=== PATIENT | female | born 1985 | race Caucasian/White ===

== ENCOUNTER 2020-07-04 05:09 | Emergency (ER) | payer MEDICARE, OTHER ==
[~2020-07-04] VITALS: Ht 170.2 cm; Wt 54.4 kg
--- NOTE | 2020-07-04 05:19 | NUR ---
PT STANFORD FROM HOME C/O BIZARE BEHAVIOR. POSSIBLE FENTANYL USE PER PT'S SISTER/ I SPOKE TO THE PT'S SISTER WHICH STATED PT LEFT THE HOUSE AND CAME BACK ACTING "WEIRD" ALSO STATED SHE STATES SHE "FEELS WORMS COMING OUT OF HER" NO WORMS NOTED UPON ASSESSMENT.
--- NOTE | 2020-07-04 06:30 | NUR ---
URINE COLLECTED, SENT.
--- NOTE | 2020-07-04 06:35 | NUR ---
Mellisa duncan in [facility] - 07/04/20 at 0652 by AZUL URINE COLLECTED, SENT.
--- NOTE | 2020-07-04 06:39 | NUR ---
HENRIID SWABBED, SENT TO LAB.
--- NOTE | 2020-07-04 06:39 | NUR ---
Mellisa duncan in [facility] - 07/04/20 at 0653 by AZUL COVID SWABBED, SENT TO LAB.
--- NOTE | 2020-07-04 06:39 | NUR ---
Mellisa duncan in [facility] - 07/04/20 at 0653 by AZUL COVID SWABBED, SENT TO LAB.
[2020-07-04 06:44] LABS: BASOPHILS # (AUTO) 0.1 /CMM (0.0-0.2); BASOPHILS % (AUTO) 0.9 % (0.0-2.0); EOSINOPHILS % (AUTO) 0.3 % (0.0-6.0); HEMATOCRIT 35 % (33-45); HEMOGLOBIN 11.5 g/dL (11.5-14.8); LYMPHOCYTES # (AUTO) 0.8 /CMM (0.8-4.8); LYMPHOCYTES % (AUTO) 5.8 % (20.0-44.0); MEAN CORPUSCULAR HGB CONC 33 g/dl (31.0-36.0); MEAN CORPUSCULAR VOLUME 90 fL (82-100); MONOCYTES % (AUTO) 7.4 % (2.0-12.0); NEUTROPHILS % (AUTO) 85.6 % (43.0-81.0); PLATELET COUNT (AUTO) 248 /CMM (150-450)
--- NOTE | 2020-07-04 06:53 | NUR ---
HENRIID SWABBED, SENT TO LAB.
[2020-07-04 07:20] LABS: ALANINE AMINOTRANSFERASE 24 U/L (12-78); ALBUMIN 3.4 g/dL (3.4-5.0); ALCOHOL, BLOOD < 3 mg/dL (0-0); ALKALINE PHOSPHATASE 59 U/L (46-116); ASPARTATE AMINOTRANSFERASE 25 U/L (15-37); BILIRUBIN,DIRECT 0.2 mg/dL (0.0-0.2); BILIRUBIN,TOTAL 0.6 mg/dL (0.2-1.0); CALCIUM, SERUM 8.6 mg/dL (8.5-10.1); CARBON DIOXIDE 25 mmol/L (21-32); CHLORIDE 102 mmol/L (98-107); CREATININE 0.5 mg/dL (0.6-1.3); GLUCOSE 99 mg/dL (74-106); POTASSIUM 3.6 mmol/L (3.5-5.1); SODIUM SERUM 139 mmol/L (136-145); TOTAL PROTEIN, SERUM 7.2 g/dL (6.4-8.2); UREA NITROGEN, BLOOD 9 mg/dL (7-18)
[2020-07-04 07:33] LABS: ACETAMINOPHEN < 10 ug/ml (10-30)
--- NOTE | 2020-07-04 07:38 | NUR ---
REPORT GIVEN TO TOMASZ MILLER FOR SUNSHINE
[2020-07-04 07:50] LABS: BILIRUBIN,URINE NEGATIVE (NEGATIVE); COLOR,URINE YELLOW (YELLOW); LEUKOCYTE ESTERASE ,URINE NEGATIVE (NEGATIVE); NITRITE, URINE NEGATIVE (NEGATIVE); PH,URINE 7.5 (5.0-8.0); PROTEIN,URINE 30 mg/dl (NEGATIVE); UGLUCOSE NEGATIVE (NEGATIVE)
[2020-07-04 08:59] LABS: BACTERIA,URINE Rare /HPF (None Seen); RBC,URINE 0-2 /HPF (0-2); SQUAMOUS EPITHELIAL CELL,UR Few /HPF (None Seen); WBC,URINE 0-2 /HPF (0-3)
[2020-07-04 09:00] LABS: URINE AMORPHOUS PHOSPHATES Moderate /HPF (None Seen)
--- NOTE | 2020-07-04 09:05 | NUR ---
Patient discharged to home in stable condition. Written and verbal after care instructions given. Patient verbalizes understanding of instruction.
[2020-07-04 09:09] VITALS: BP 124/65
== END 2020-07-04 09:09 | disposition home or self-care (01) ==
LOC: ER 05:16
DX: F11.10 Opioid abuse, uncomplicated (principal); F95.2 Tourette's disorder; F84.0 Autistic disorder; F19.10 Other psychoactive substance abuse, uncomplicated; R46.2 Strange and inexplicable behavior; D72.829 Elevated white blood cell count, unspecified; Z20.828 Contact with and (suspected) exposure to other viral communicable diseases
CPT/HCPCS: 36415; 80048; 80076; 80299; 80307; 80320; 81001; 85025; 87426; 99283; C1751; C9803; G0480

== ENCOUNTER 2020-10-03 21:26 | Emergency (ER) | payer MEDICARE, OTHER ==
[~2020-10-03] VITALS: Ht 170.2 cm; Wt 54.4 kg
[2020-10-03] MEDS ORDERED: diphenhydrAMINE HCL 50 MG/ML VIAL ONE (21:40)
[2020-10-03] MEDS ORDERED: diphenhydrAMINE HCL ELIX 25 MG/10 ML UDC ONE (21:55)
[2020-10-03] MEDS ORDERED: OLANZAPINE 10 MG VIAL IM ONE ×2 (21:56→22:00)
[2020-10-03] MEDS ORDERED: IV NS 0.9% 1,000 ML BAG IV ONE (22:00)
[2020-10-03] MEDS ORDERED: DIPHENHYDRAMINE HCL 12.5 MG/5 ML UDC PO ONE (22:00)
--- NOTE | 2020-10-03 22:05 | NUR ---
STANFORD FROM HOME TO ER BED 13. AAOX4. 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 NOT IN RESP DISTRESS. BROUGHT IN FOR A LEFT LOWER LEG SWELLING AND BILAT ARM REDNESS AND ITCHING. PER PT, THEY HAVE MOLDS IN THE HOUSE THAT IS CAUSING THE REDNESS. PT STHINKS THAT IT IS INFECTED. PROVIDER WAS AT THE BEDSIDE FOR EVAL. ORDERS RECEIVED, NOTED AND MARINA OUT. IV LINE ESTABLISHED ON L AC 20G, BLOOD DRAWN AND SENT TO LAB.
[2020-10-03 22:07] LABS: BASOPHILS % (AUTO) 0.7 % (0.0-2.0); EOSINOPHILS % (AUTO) 2.6 % (0.0-6.0); HEMATOCRIT 41 % (33-45); HEMOGLOBIN 13.6 g/dL (11.5-14.8); LYMPHOCYTES # (AUTO) 2.4 /CMM (0.8-4.8); LYMPHOCYTES % (AUTO) 36.3 % (20.0-44.0); MEAN CORPUSCULAR HGB CONC 33 g/dl (31.0-36.0); MEAN CORPUSCULAR VOLUME 93 fL (82-100); MONOCYTES # (AUTO) 0.5 /CMM (0.1-1.30); MONOCYTES % (AUTO) 7.9 % (2.0-12.0); NEUTROPHILS # (AUTO) 3.5 /CMM (1.8-8.9); NEUTROPHILS % (AUTO) 52.5 % (43.0-81.0); PLATELET COUNT (AUTO) 248 /CMM (150-450); RED BLOOD CELL COUNT(AUTO) 4.41 MIL/uL (4.0-5.2); WHITE BLOOD COUNT (AUTO) 6.7 K/uL (4.3-11.0)
[2020-10-03 22:32] LABS: ALANINE AMINOTRANSFERASE 31 U/L (12-78); ALCOHOL, BLOOD < 3 mg/dL (0-0); ALKALINE PHOSPHATASE 53 U/L (46-116); ASPARTATE AMINOTRANSFERASE 42 U/L (15-37); BILIRUBIN,DIRECT 0.2 mg/dL (0.0-0.2); BILIRUBIN,TOTAL 0.5 mg/dL (0.2-1.0); CALCIUM, SERUM 8.6 mg/dL (8.5-10.1); CARBON DIOXIDE 24 mmol/L (21-32); CHLORIDE 104 mmol/L (98-107); GLUCOSE 70 mg/dL (74-106); POTASSIUM 3.3 mmol/L (3.5-5.1); SODIUM SERUM 141 mmol/L (136-145); TOTAL PROTEIN, SERUM 7.4 g/dL (6.4-8.2); UREA NITROGEN, BLOOD 9 mg/dL (7-18)
[2020-10-03 22:33] LABS: ACETAMINOPHEN < 2 ug/ml (10-30)
[2020-10-03] MEDS ORDERED: CEPHALEXIN MONOHYDRATE 500 MG CAPSULE PO ONE ×2 (23:00→23:05)
[2020-10-03] MEDS ORDERED: SULFAMETH/TRIMETH 800/160 MG 1 UDTAB TABLET PO ONE (23:00)
[2020-10-03] MEDS ORDERED: SULFAMETH/TRIMETH 800/160 MG 1 UDTAB TABLET ONE (23:05)
[2020-10-03 23:06] LABS: CREATININE 0.6 mg/dL (0.6-1.3)
[2020-10-03] MEDS ORDERED: CEPH500T PO (23:23)
[2020-10-03] MEDS ORDERED: SULF1TAB48 PO (23:23)
--- NOTE | 2020-10-04 06:01 | NUR ---
Patient discharged to home in stable condition. Written and verbal after care instructions given. Patient verbalizes understanding of instruction.
--- NOTE | 2020-10-04 06:01 | NUR ---
IV removed. Catheter intact and site benign. Pressure and 4x4 applied to site. No bleeding noted.
[2020-10-04 06:05] LABS: BILIRUBIN,URINE NEGATIVE (NEGATIVE); COLOR,URINE YELLOW (YELLOW); LEUKOCYTE ESTERASE ,URINE NEGATIVE (NEGATIVE); NITRITE, URINE NEGATIVE (NEGATIVE); PROTEIN,URINE NEGATIVE (NEGATIVE); UGLUCOSE NEGATIVE (NEGATIVE); UROBILINOGEN,URINE 0.2 EU/dL (0.2)
[2020-10-04 06:26] LABS: BACTERIA,URINE 1+ /HPF (None Seen); MUCUS,URINE Few /LPF (None Seen); RBC,URINE 0-2 /HPF (0-2); SQUAMOUS EPITHELIAL CELL,UR Moderate /HPF (None Seen); URINE AMORPHOUS URATE Few /HPF (None Seen)
[2020-10-04 07:24] VITALS: BP 124/77
== END 2020-10-04 06:04 | disposition home or self-care (01) ==
LOC: ER 21:26
DX: F29 Unspecified psychosis not due to a substance or known physiological condition (principal); F15.90 Other stimulant use, unspecified, uncomplicated; L03.116 Cellulitis of left lower limb; F84.0 Autistic disorder; Z79.899 Other long term (current) drug therapy
CPT/HCPCS: 36415; 80048; 80076; 80299; 80307; 80320; 81001; 84703; 85025; 93005; 93971; 96360; 96372; 99285; J1200; J3490; J7030; Q0163 ×2; G0480